=== PATIENT | male | born 1935 | race Caucasian/White ===

== ENCOUNTER 2016-11-12 16:45 | Inpatient (IN) | payer MEDICARE, OTHER ==
--- NOTE | ~2016-11-12 | DS ---
Discharge Summary [address] [id number] [place]. [address] NAME: ABHI MEDRANO : 35 STATUS : DIS IN PAT#: [id number] AGE: 81 ADM/REG DATE : 11/12/16 MR#: [id number] REPORT SERV DATE: 11/16/16 DICTATED BY: RIC VASQUEZ DATE: 11/16/16 REPORT STATUS : Draft TRANSCRIBED BY: MODL DATE: 11/16/16 ADMISSION DATE: 11/12/2016 DISCHARGE DATE: 11/16/2016 REASON FOR ADMISSION: An 81-year-old male who came in with chief complaint of black stools and generalized weakness. The patient has history of cirrhosis with ascites, CAD, hypertension, CKD. For about three days two weeks prior to coming in, the patient was having bright red blood in the stool and then over the last week leading up to admission had bright red blood per rectum, had reported that. Upon further questioning, was found out that it was actually more black and maroon in color. The patient was admitted for GI bleed. DISCHARGE DIAGNOSES: 1. 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 2. Acute blood loss anemia secondary to gastrointestinal bleed. 3. Liver cirrhosis with ascites, status post paracentesis. 4. Congestive heart failure with ejection fraction of 40%. 5. Acute kidney injury on chronic kidney disease stage 3. 6. Tachy-zainab syndrome. 7. Atrial fibrillation, on chronic Coumadin. HOSPITAL COURSE: 1. GI bleed. The patient was admitted for GI bleed, placed on Sandostatin IV drip and IV Protonix, who was seen by Dr. Lundberg and had an endoscopy performed upper GI Dr. Tyler on 11/13/2016 which would show patchy erythematous mucosa in the gastric body, examination otherwise normal. No suggestion of bleeding in the upper GI tract. Colonoscopy was then performed with Dr. Lundberg on the 11/14/2016 and that would show examined portion of ilium to be normal, a single bleeding colonic angioectasia with clips that were placed, also diverticulosis of the descending colon. His recommendation was to monitor hemoglobin and hematocrit and restart Coumadin when if no bleeding and consider not restarting Plavix if it was okay with Cardiology. Cardiology agreed with not restarting Plavix and Coumadin will be restarted tonight at home for the patient. On admission, hemoglobin was 5.2, and he was transfused 3 units packed red cells and 1 unit of FFP. Hemoglobin has been stable, status post colonoscopy, today it is 10.1. 2. Liver cirrhosis with ascites. The patient has chronic cirrhosis with ascites and is followed outpatient by Dr. Andrea Fletcher. His abdominal girth has been increasing over the last month and was causing him some discomfort and mild difficulty breathing. We decided to go ahead and do therapeutic paracentesis while he was here at the hospital and his INR was already lowered while having been had held on his Coumadin for the GI bleed. So, paracentesis was performed today and 14 and 0.5 L were pulled per Interventional Radiology. Blood pressures are stable 130s over 70s, status post procedure. 3. CHF. EF of 40% with tachy-zainab syndrome and atrial fibrillation. The patient having slow heart rates here at the hospital with running in the 30s the first night he got here, was asymptomatic, and in fact he had another episode of his heart rate running in Discharge Summary [address] [address] NAME: ABHI MEDRANO : 35 STATUS : DIS IN PAT#: [id number] AGE: 81 ADM/REG DATE : 11/12/16 MR#: [id number] REPORT SERV DATE: 11/16/16 DICTATED BY: RIC VASQUEZ DATE: 11/16/16 REPORT STATUS : Draft TRANSCRIBED BY: MODL DATE: 11/16/16 the 40s last night. He has been asymptomatic. His heart rate has never been much out of the 60s, it has been mainly running in 60s and 50s during the day and gets down 40s at night. We have been holding his Coreg because of this and Cardiology recommended to continue holding it for the time being. We will have him follow up with Dr. Yang. 4. Acute kidney injury with chronic kidney disease. The patient has CKD 3. His creatinine on admission was 1.91 after transfusion of red blood cells, his creatinine is 1.34 today. DISCHARGE CONDITION: Stable. DISCHARGE MEDICATIONS: 1. Allopurinol 100 mg p.o. daily. 2. Norvasc 5 mg p.o. daily. 3. Lipitor 40 mg p.o. at bedtime. 4. Nitrostat 0.4 sublingual p.r.n. 5. Vitamin B12 one tablet daily. 6. Folic acid 1 mg p.o. daily. 7. Lasix 40 mg p.o. q.48 hours. 8. Hydralazine 25 mg p.o. q.8 hours. 9. Imdur 60 mg p.o. daily. 10.Lactulose 30 mL b.i.d. 11.Synthroid 125 mcg p.o. daily. 12.Protonix 40 mg p.o. daily. 13.Aldactone 25 mg p.o. daily. 14.Warfarin 4 mg p.o. daily. New INR goal given GI bleed will be 2.0 to 2.4, and we will have him follow up with the [facility] this and again on Wednesday to keep close tabs on his PT/INR. DISCHARGE PLAN: The patient is discharged to home this evening. Follow up with Dr. Yang in one to two weeks. Follow up with Dr. Andrea Fletcher next week. Follow up with primary care. The patient's new goal for INR is 2.0-2.4, so we will keep a close eye on his PT/INR. The patient does cardiac rehab twice a week, Wednesday and , at [facility] and also we will get his PT/INR checked during those times. JERROD/SEAN Ric Vasquez APN / [id number] CC: Isac King M.D. Chirag Patel, M.D. Discharge Summary [address] [address] NAME: ABHI MEDRANO : 35 STATUS : DIS IN PAT#: [id number] AGE: 81 ADM/REG DATE : 11/12/16 MR#: [id number] REPORT SERV DATE: 11/16/16 DICTATED BY: RIC VASQUEZ DATE: 11/16/16 REPORT STATUS : Draft TRANSCRIBED BY: SEAN DATE: 11/16/16 Isac Crisostomo MD
--- NOTE | ~2016-11-12 | EGD ---
EGD REPORT [facility] [address] [address] NAME: NAVDEEP MEDRANO : 35 STATUS : ADM IN PAT#: [id number] AGE: 81 ADM/REG DATE : 11/12/16 MR#: [id number] REPORT SERV DATE: 11/14/16 DICTATED BY: ANDRZEJ CARTWRIGHT DATE: 11/14/16 REPORT STATUS : Draft TRANSCRIBED BY: [facility] DATE: 11/14/16 Endoscopy Center Patient Name: Navdeep Medrano Date of : 1935 Attending MD: ANDRZEJ CARTWRIGHT MD Procedure Date No Time: 11/14/2016 Procedure: Colonoscopy Indications: Hematochezia. Coumadin/Plavix. H/o cardiac stent, Afib. Patient Profile: Informed consent was obtained from the patient by me prior to the procedure. Risks, benefits, and alternatives were discussed including the risk of bleeding, perforation, infection, reaction to medicine, missed lesion, and cardiopulmonary complications. Referring MD: CHIQUI KILLIAN MD, DEVIN CHILDERS MD Medicines: Monitored Anesthesia Care Complications: No immediate complications. Procedure: Pre-Anesthesia Assessment: - ASA Grade Assessment: III - A patient with severe systemic disease. After I obtained informed consent, the scope was passed under direct vision. Throughout the procedure, the patient's blood pressure, pulse, and oxygen saturations were monitored continuously. The PCF H190L [id number] was introduced through the anus and advanced to the cecum, identified by appendiceal orifice and ileocecal valve. The colonoscope was slowly withdrawn with careful examination all mucosal surfaces including specific attention around flexures and tip deflection behind folds; retroflexion performed in rectum. The colonoscopy was performed without difficulty. The patient tolerated the procedure well. The quality of the bowel preparation was adequate. The ileocecal valve, appendiceal orifice, terminal ileum and rectum were photographed. Findings: The terminal ileum appeared normal. A single small localized angioectasia with bleeding was found at the hepatic flexure. Three hemostatic clips were successfully placed. Bleeding had stopped at the end of the procedure. Two small-mouthed diverticula were found in the descending colon. Impression: - The examined portion of the ileum was normal. - A single bleeding colonic angioectasia. Clips were placed. - Diverticulosis in the descending colon. EGD REPORT [place] [address] [facility] [place]. [address] NAME: NAVDEEP MEDRANO : 35 STATUS : ADM IN [facility]#: [id number] AGE: 81 ADM/REG DATE : 11/12/16 MR#: [id number] REPORT SERV DATE: 11/14/16 DICTATED BY: ANDRZEJ CARTWRIGHT DATE: 11/14/16 REPORT STATUS : Draft TRANSCRIBED BY: [employer] DATE: 11/14/16 Recommendation: Monitor HCT. Restart coumadin tomorrow if no bleeding. Consider no Plavix if OK with Cardiology. Procedure Code(s): --- Professional --- 96114, Colonoscopy, flexible, proximal to splenic flexure; with control of bleeding (eg, injection, bipolar cautery, unipolar cautery, laser, heater probe, stapler, plasma senior security analyst) Diagnosis Code(s): --- Professional --- K57.30, Diverticulosis of large intestine without perforation or abscess without bleeding K55.21, Angiodysplasia of colon with hemorrhage K92.1, Melena CPT copyright 2013 [employer]. All rights reserved. The codes documented in this report are preliminary and upon inpatient coder review may be revised to meet current compliance requirements. ANDRZEJ CARTWRIGHT MD 11/14/2016 7:41 AM This report has been signed electronically. Number of Addenda: 0 Note Initiated On: 11/14/2016 6:50 AM [address] [id number]
--- NOTE | ~2016-11-12 | EGD ---
EGD REPORT [facility] [address] [place] [address] NAME: NAVDEEP MEDRANO : 35 STATUS : DIS IN PAT#: [id number] AGE: 81 ADM/REG DATE : 11/12/16 MR#: [id number] REPORT SERV DATE: 12/01/16 DICTATED BY: ANDRZEJ CARTWRIGHT DATE: 12/01/16 REPORT STATUS : Draft TRANSCRIBED BY: [facility] DATE: 12/01/16 Endoscopy Center Patient Name: Navdeep Medrano Date of : 1935 Attending MD: ANDRZEJ CARTWRIGHT MD Procedure Date No Time: 11/14/2016 Procedure: Colonoscopy Indications: Hematochezia. Coumadin/Plavix. H/o cardiac stent, Afib. Patient Profile: Informed consent was obtained from the patient by me prior to the procedure. Risks, benefits, and alternatives were discussed including the risk of bleeding, perforation, infection, reaction to medicine, missed lesion, and cardiopulmonary complications. Referring MD: CHIQUI KILLIAN MD, DEVIN CHILDERS MD Medicines: Monitored Anesthesia Care Complications: No immediate complications. Procedure: Pre-Anesthesia Assessment: - ASA Grade Assessment: III - A patient with severe systemic disease. After I obtained informed consent, the scope was passed under direct vision. Throughout the procedure, the patient's blood pressure, pulse, and oxygen saturations were monitored continuously. The PCF H190L [id number] was introduced through the anus and advanced to the cecum, identified by appendiceal orifice and ileocecal valve. The colonoscope was slowly withdrawn with careful examination all mucosal surfaces including specific attention around flexures and tip deflection behind folds; retroflexion performed in rectum.The colonoscopy was performed without difficulty. The patient tolerated the procedure well. The quality of the bowel preparation was adequate. The ileocecal valve, appendiceal orifice, terminal ileum and rectum were photographed. Findings: The terminal ileum appeared normal. A single small localized angioectasia with bleeding was found at the hepatic flexure. Three hemostatic clips were successfully placed. Bleeding had stopped at the end of the procedure. Two small-mouthed diverticula were found in the descending colon. Impression: - The examined portion of the ileum was normal. - A single bleeding colonic angioectasia. Clips were placed. - Diverticulosis in the descending colon. EGD REPORT [place] [address] [facility] [place]. [address] NAME: NAVDEEP MEDRANO : 35 STATUS : DIS IN PAT#: [id number] AGE: 81 ADM/REG DATE : 11/12/16 MR#: [id number] REPORT SERV DATE: 12/01/16 DICTATED BY: ANDRZEJ CARTWRIGHT DATE: 12/01/16 REPORT STATUS : Draft TRANSCRIBED BY: [employer] DATE: 12/01/16 Recommendation: Monitor HCT. Restart coumadin tomorrow if no bleeding. Consider no Plavix if OK with Cardiology. Procedure Code(s): --- Professional --- 46746, Colonoscopy, flexible, proximal to splenic flexure; with control of bleeding (eg, injection, bipolar cautery, unipolar cautery, laser, heater probe, stapler, plasma can filling machine operator) Diagnosis Code(s): --- Professional --- K57.30, Diverticulosis of large intestine without perforation or abscess without bleeding K55.21, Angiodysplasia of colon with hemorrhage K92.1, Melena CPT copyright 2013 [employer]. All rights reserved. The codes documented in this report are preliminary and upon market research interviewer review may be revised to meet current compliance requirements. ANDRZEJ CARTWRIGHT MD 11/14/2016 7:41 AM This report has been signed electronically. Number of Addenda: 0 Note Initiated On: 11/14/2016 6:50 AM Scope Withdrawal Time 0 hours 20 minutes 17 seconds
--- NOTE | ~2016-11-12 | HP ---
History And Physical [place] [id number] [facility] [place]. [address] NAME: ABHI MEDRANO : 35 STATUS : REG ER PAT#: [id number] AGE: 81 ADM/REG DATE : 11/12/16 MR#: [id number] REPORT SERV DATE: 11/12/16 DICTATED BY: ADDY XIONG DATE: 11/12/16 REPORT STATUS : Draft TRANSCRIBED BY: MODL DATE: 11/12/16 DATE OF ADMISSION: 11/12/2016 CHIEF COMPLAINT: Black stools and generalized weakness. HISTORY OF PRESENT ILLNESS: This is an 81-year-old gentleman with history of atrial fibrillation who is on Coumadin as well as history of cirrhosis with ascites, coronary artery disease, hypertension, chronic kidney disease, amongst many other medical conditions, presenting with black stools and generalized weakness. The patient reports that he has had three days of bright red blood about a couple of weeks ago, and then for the past week, the patient has been having bright red blood per rectum. However, upon further questioning, and after examination of the stool sample that the family actually brought in, it is more black and maroon in color. Along with that, the patient grew weak and fatigued along with shortness of breath and dyspnea on exertion. The patient was brought to the ER for further evaluation and care. In the ER, the patient was found to be afebrile and hemodynamically stable. Initial lab evaluation was actually fairly benign except for hemoglobin of 5.2. The most recent hemoglobin that we have on records is from 10/06/2016 which is about a month ago, and at that time, he was found to be 10.4. The patient was also found to be slightly supratherapeutic and the INR at 3.3. Internal Medicine consultation was requested for admission of the patient for further evaluation and care. REVIEW OF SYSTEMS: The patient denies any fevers or chills. Also, 14-point review of systems reviewed and negative other than mentioned above. MEDICATIONS: The list is still pending at this time, but the patient is on Coumadin as well as Plavix for atrial fibrillation with history of CVA. ALLERGIES: 1. PENICILLINS. 2. CARBAPENEMS. 3. CEPHALOSPORINS. PAST MEDICAL HISTORY: 1. Atrial fibrillation for which he is on Coumadin. The patient follows with Dr. Yang. 2. Congestive heart failure, historically known with ejection fraction of 20%. But more recently from June, he was found to also have a right-sided systolic heart failure at 40% EF. 3. Coronary artery disease. 4. Chronic kidney disease, stage III with baseline creatinine of between 1.5 and 2.0. The patient follows with Dr. Reddy. 5. Cardiac cirrhosis with ascites. The patient had a most recent paracentesis of 14 L last June. The patient follows with Dr. Fletcher as well as Dr. Ron. The patient also does have a history of hepatic encephalopathy for which he is on lactulose. History And Physical [address] [address] NAME: ABHI MEDRANO : 35 STATUS : REG ER PAT#: [id number] AGE: 81 ADM/REG DATE : 11/12/16 MR#: [id number] REPORT SERV DATE: 11/12/16 DICTATED BY: ADDY XIONG DATE: 11/12/16 REPORT STATUS : Draft TRANSCRIBED BY: [employer] DATE: 11/12/16 6. Pulmonary hypertension. 7. Hypertension. 8. History of CVA. PAST SURGICAL HISTORY: Cardiac stents. FAMILY HISTORY: Negative for heart or liver disease. SOCIAL HISTORY: The patient does not smoke, drink alcohol, or use any illicit drugs. The patient lives at home with his . The patient is accompanied by his two daughters and the patient's here in the ER. The patient does not smoke, drink alcohol, or use any illicit drugs. PHYSICAL EXAMINATION: VITAL SIGNS: Temperature 98.2, blood pressure 111/56, pulse 68, respiratory rate is 18, saturating 100% on 2 L of oxygen. NEUROLOGIC: The patient is alert and oriented x3 with no focal neurologic deficits. GENERAL: The patient is awake, does not appear to be in acute distress, and he is cooperative. NECK: No JVD. No lymphadenopathy. Normal thyroid. CHEST: No midline sternotomy scar and no tenderness to palpation. LUNGS: Actually clear to auscultation bilaterally with normal respiratory effort on 2 L of oxygen per nasal cannula. The patient has limited deep inspiration secondary to ascites. CARDIOVASCULAR: Regular rate and rhythm with no murmurs, rubs, or gallops and PMI is nondisplaced. ABDOMEN: Soft, nontender, with active bowel sounds and no organomegaly. The patient does have distended abdomen from the ascites. EXTREMITIES: No edema. Normal distal pulses. No calf tenderness. SKIN: Clean, dry, warm, and intact. LABORATORY DATA: Sodium is 139, potassium 4.3, chloride 108, BUN 48, creatinine 1.91, glucose 142, calcium 8.6. LFTs are within normal limits. White blood cell count is 5.9, hemoglobin 5.2, platelets 152. INR is 3.3. ASSESSMENT: This is an 81-year-old gentleman with history of atrial fibrillation, anticoagulated on Coumadin, as well as cirrhosis presenting with an upper gastrointestinal bleed. 1. Upper gastrointestinal bleed with acute blood loss anemia. The patient's hemoglobin went from 10.4 to 5.2 in a matter of month. 2. Cardiac cirrhosis with ascites. 3. Chronic atrial fibrillation, on Coumadin, the patient's INR is 3.3 today. 4. Coronary artery disease. 5. Chronic kidney disease, stage III, stable today. 6. Hypertension. 7. History of cerebrovascular accident. PLAN: My plan is to admit the patient under telemetry monitoring. The patient will be given History And Physical [address] [place]. [address] NAME: ABHI MEDRANO : 35 STATUS : REG ER [facility]#: [id number] AGE: 81 ADM/REG DATE : 11/12/16 MR#: [id number] REPORT SERV DATE: 11/12/16 DICTATED BY: ADDY XIONG DATE: 11/12/16 REPORT STATUS : Draft TRANSCRIBED BY: MODL DATE: 11/12/16 IV fluid resuscitation. The patient will be given two packs of PRBCs as well as reversing the Coumadin with FFP and vitamin K. The patient's H and H will be closely monitored and additional PRBCs will be given as needed. I will go ahead and start the patient on Protonix drip as well as octreotide drip given his history of cirrhosis. GI consultation has already been requested, and I have also consulted with Dr. Fletcher during the patient's current situation. Standard DVT prophylaxis. The patient is full code at this time. [facility]/CHARLAL Addy Xiong MD / [id number] CC: Isac Escobar M.D. C. Samuel Ledford, M.D. Donald Hetzel, M.D.
--- NOTE | ~2016-11-12 | EGD ---
EGD REPORT [facility] [address] [address] NAME: NAVDEEP MEDRANO : 35 STATUS : ADM IN PAT#: [id number] AGE: 81 ADM/REG DATE : 11/12/16 MR#: [id number] REPORT SERV DATE: 11/13/16 DICTATED BY: MARK HOLLOWAY DATE: 11/13/16 REPORT STATUS : Draft TRANSCRIBED BY: [facility] DATE: 11/13/16 Endoscopy Center Patient Name: Navdeep Medrano Date of : 1935 Attending MD: MARK HOLLOWAY MD Procedure Date No Time: 11/13/2016 Procedure: Upper GI endoscopy Indications: Hematochezia, Melena Referring MD: CHIQUI KILLIAN MD Medicines: Monitored Anesthesia Care Complications: No immediate complications. Estimated blood loss: None. Procedure: Pre-Anesthesia Assessment: - ASA Grade Assessment: III - A patient with severe systemic disease. After obtaining informed consent, the endoscope was passed under direct vision. Throughout the procedure, the patient's blood pressure, pulse, and oxygen saturations were monitored continuously. The GIF [id number] [id number] was introduced through the mouth, and advanced to the second part of duodenum. The upper GI endoscopy was accomplished without difficulty. The patient tolerated the procedure well. Findings: The examined esophagus was normal. Patchy moderately erythematous mucosa without bleeding was found in the gastric body. The examined duodenum was normal. The cardia and gastric fundus were normal on retroflexion. The exam was otherwise without abnormality. Impression: - Patchy erythematous mucosa in the gastric body. - The examination was otherwise normal. - No suggestion of bleeding in the upper GI tract Recommendation: - Perform a colonoscopy tomorrow. Procedure Code(s): --- Professional --- 89007, Esophagogastroduodenoscopy, flexible, transoral; diagnostic, including collection of specimen(s) by brushing or washing, when performed (separate procedure) Diagnosis Code(s): --- Professional --- K31.9, Disease of stomach and duodenum, unspecified K92.1, Melena EGD REPORT [facility] [address] [place] [address] [place]. [address] NAME: NAVDEEP MEDRANO : 35 STATUS : ADM IN [facility]#: [id number] AGE: 81 ADM/REG DATE : 11/12/16 MR#: [id number] REPORT SERV DATE: 11/13/16 DICTATED BY: MARK HOLLOWAY DATE: 11/13/16 REPORT STATUS : Draft TRANSCRIBED BY: [employer] DATE: 11/13/16 CPT copyright 2013 [employer]. All rights reserved. The codes documented in this report are preliminary and upon equine internship review may be revised to meet current compliance requirements. Mark Holloway MD MARK HOLLOWAY MD 11/13/2016 11:11 AM This report has been signed electronically. Number of Addenda: 0 Note Initiated On: 11/13/2016 10:34 AM Scope Withdrawal Time 0 hours 0 minutes [address] [place], [place] [address] [address]
--- NOTE | ~2016-11-12 | CN ---
Consultation Report [facility] [address]. [address] NAME: ABHI MEDRANO : 35 STATUS : ADM IN PAT#: [id number] AGE: 81 ADM/REG DATE : 11/12/16 MR#: [id number] REPORT SERV DATE: 11/13/16 DICTATED BY: LUIS ANGEL BOCANEGRA DATE: 11/13/16 REPORT STATUS : Draft TRANSCRIBED BY: MODL DATE: 11/13/16 CARDIOLOGY CONSULTATION DATE OF CONSULTATION: REFERRING REASON: Atrial fibrillation with slow ventricular response and GI bleeding and chronic anticoagulation. HISTORY OF PRESENT ILLNESS: This is a pleasant 81-year-old white gentleman with complex past medical history, well known to Dr. Dirk Yang from [facility], who has been admitted to Hospitalist Service after syncopal spell in the setting of recurrent GI bleeding and severe anemia with hemoglobin 5.2 and hematocrit 16. His Coumadin has been reversed, while initially INR was 3.3. He underwent resuscitative measures and had an EGD earlier today, which revealed patchy erosive mucosa in the stomach, but no other source of bleeding. The patient has known CAD with a history of drug-eluting stent to RCA in 10/2015 during the last [facility] office visit. The Plavix which the patient was recommended to discontinue, but reportedly he was still on it. He is on chronic anticoagulation with Coumadin due to high CHADS-VASc risk score for chronic atrial fibrillation. He also has cirrhosis have his recurrent ascites and large volume thoracentesis in June up to 14 L. His last GI bleeding was reportedly in 09/2016. There has been some fluctuation of the INR recently. The patient lives with his . He walks without any support. He has some chronic melena, and most recently, bright red blood per rectum. He has some chronic mild to moderate dyspnea on exertion, but denies signs of paroxysmal nocturnal dyspnea or chest pain. He denies any palpitations. Earlier today, in the GI lab, there has been some episodes of up to 18 beats runs of wide-complex tachycardia, which is possible AFib with aberrancy. He has chronic atrial fibrillation. He was asymptomatic at that time. He denies any palpitations. Due to the slow AFib with slow ventricular response in the low 50s, carvedilol has been on hold now. The patient is now comfortable and lying flat without any shortness of breath. He has some multiple questions and I had the opportunity to discuss situation with his and two of his daughters. Multiple records also reviewed. PAST MEDICAL HISTORY: 1. History of recent GI bleeding. Denies history of liver cirrhosis with status post large volume paracenteses in June, followed by liver specialist. 2. Chronic kidney disease. 3. Coronary artery disease, status post drug-eluting stent into the RCA in 10/2015 with moderate residual disease in the LAD treated medically. Denies congestive heart failure class 2 symptoms. 4. Cardiomyopathy with EF 40% in 2016. 5. Chronic atrial fibrillation. 6. CHADS-VASc risk score of 8, on chronic anticoagulation with Coumadin. 7. Hypertension. Consultation Report [address] [place]. [address] NAME: ABHI MEDRANO : 35 STATUS : ADM IN [facility]#: [id number] AGE: 81 ADM/REG DATE : 11/12/16 MR#: [id number] REPORT SERV DATE: 11/13/16 DICTATED BY: LUIS ANGEL BOCANEGRA DATE: 11/13/16 REPORT STATUS : Draft TRANSCRIBED BY: SEAN DATE: 11/13/16 8. Hyperlipidemia. 9. History of recurrent GI bleeding. 10.Obstructive sleep apnea. 11.Hypothyroidism. 12.Remote history of cerebrovascular accident. ALLERGIES: PENICILLIN AND CEPHALOSPORIN. SOCIAL HISTORY: The patient quit smoking 30 years ago, smoked for many years. Denies drinking alcohol or using street drugs. He is walking without any support. He is . FAMILY HISTORY: Negative for sudden cardiac premature coronary arteries in the family. HOME MEDICATIONS: Allopurinol, amlodipine 5 mg once a day, Lipitor 40 mg once a day, Coreg 6.25 twice a day, Plavix 75 mg once a day, folic acid, Lasix 40 mg every other day, hydralazine 25 mg every 8 hours as needed, Imdur 60 mg once a day, lactulose, Synthroid 125 mcg once a day, nitroglycerin p.r.n., pantoprazole 40 mg once a day, Aldactone 25 mg once a day, and Coumadin and 5 mg once a day. PHYSICAL EXAMINATION: GENERAL. No acute distress elderly gentleman. VITAL SIGNS: Blood pressure 136/60, heart rate 54 and irregularly irregular. HEENT: Pupils reactive to light and accommodation. Moist mucosa membrane. NECK: No JVD. Normal carotid upstroke. No carotid bruits. LUNGS: Decreased breath sounds. Normal respiratory effort, but no crackles. ABDOMEN: Obese, distended with some ascites. LOWER EXTREMITIES: Trace edema around the ankle with decreased pedal pulses bilaterally. EXT: No edema. Pedal pulses strong and equal bilaterally. SKIN: Warm with normal turgor. MS: No kyphosis. NEURO/PSY: Alert and oriented. Nonfocal. DATA: Hemoglobin 5.2, hematocrit 16. INR 3.3. BUN 48, creatinine 1.9. Electrocardiogram revealed atrial fibrillation with slow ventricular response at 57 beats per minute with nonspecific T-wave changes. The monitor as above. ASSESSMENT AND PLAN: 1. Recurrent gastrointestinal bleeding. 2. Chronic anticoagulation. 3. Severe anemia in the setting of #1 and #2. 4. Syncopal spell likely in the setting of #1. 5. 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 6. Ischemic cardiomyopathy. Consultation Report [address] [place]. [address] NAME: ABHI MEDRANO : 35 STATUS : ADM IN PAT#: [id number] AGE: 81 ADM/REG DATE : 11/12/16 MR#: [id number] REPORT SERV DATE: 11/13/16 DICTATED BY: LUIS ANGEL BOCANEGRA DATE: 11/13/16 REPORT STATUS : Draft TRANSCRIBED BY: SEAN DATE: 11/13/16 7. Coronary artery disease with remote history of PCI. The patient has some multiple medical problems. He was resuscitated, and the beta blockers are on hold. We will need to monitor closely, and if his heart rate will be increasing, restart low dose of carvedilol. We will supplement with intravenous metoprolol p.r.n. also. 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 While his PCI to RCA was more than a year ago, we will discontinue Plavix completely. If he is candidate for newer agents, this will need to be discussed with the liver specialist, but I discussed with him and his family members that only Pradaxa is reversal agent for this type of situation. I am concerned that these newer origins are also metabolized through the liver, which may worsen his liver cirrhosis. We will need to hold off anticoagulation for now. The patient has a pending colonoscopy tomorrow. We will continue to follow him with you. RUBEN/SEAN Luis Angel Bocanegra M.D. / [id number] CC: Isac King M.D.
--- NOTE | ~2016-11-12 | CN ---
Consultation Report [facility] [address] [place]. [address] NAME: ABHI MEDRANO : 35 STATUS : ADM IN PAT#: [id number] AGE: 81 ADM/REG DATE : 11/12/16 MR#: [id number] REPORT SERV DATE: 11/13/16 DICTATED BY: LATESHA FALK DATE: 11/13/16 REPORT STATUS : Draft TRANSCRIBED BY: MODL DATE: 11/13/16 GI CONSULTATION DATE OF CONSULTATION: 11/13/2016 REASON FOR CONSULTATION: Evaluation and management of black stools, weakness, acute blood loss anemia. HISTORY OF PRESENT ILLNESS: Mr. Medrano is an 81-year-old male patient, who is known to Dr. Forrest Ron, as well as Dr. Andrea Fletcher, who presented to [facility] on the 11/12/2016 with a chief complaint of gastrointestinal bleeding. He states, this began last Wednesday. He states that, he of course has multiple stools per day secondary to lactulose usage. He has had some bright red blood that mainly has been dark black to maroon in color. He has had no associated abdominal pain. He has a history of cirrhosis with borderline splenomegaly and ascites that was new onset in 06/2016. He did undergo a paracentesis at that time, with 14 L being removed. He has a history of atrial fibrillation, on chronic Coumadin therapy. INR on admission was 3.3, presently it is 1.8 after FFP. Hemoglobin on admission 5.2 with hematocrit of 16. He has received 3 units of packed red blood cells thus far. Prior to the third unit had been started, his hemoglobin was 6.7, hematocrit was 20.5, elevated BUN and creatinine from baseline. His last endoscopies with Dr. Ron were done in 08/2014. His EGD had findings of hiatal hernia, gastritis as well as duodenal erosions. Colonoscopy showed colonic angioectasis, internal hemorrhoids, colon polyps. I have discussed with the patient, the patient's family that presently we will set him up for upper endoscopy secondary to his complaints of black stools to evaluate his GI tract for questionable esophageal varices, portal hypertensive gastropathy. If his EGD is negative, he will most likely be set up for colonoscopy to be done on the 11/14/2016. I did discuss risks, benefits, alternatives, and complications with them to include, but not limited to risk of bleeding, perforation, infection, reaction to medications as well as cardiac and pulmonary side effects. He is agreeable to proceed. PAST MEDICAL HISTORY: Positive for cirrhosis, most likely secondary to congestive hepatopathy, pulmonary hypertension, coronary artery disease, status post stenting on Plavix, atrial fibrillation on chronic Coumadin, abdominal ascites, chronic kidney disease stage III, hypertension, pneumonia, CVA, anemia of chronic disease, right ventricular heart failure with last ejection fraction calculated at 40%, colonic AVMs, gastritis, gout, bradycardia. SURGICAL HISTORY: Coronary artery stenting. PROCEDURES: EGD, colonoscopy. SOCIAL HISTORY: . He has two daughters and , one daughter is at the bedside. His is present. He denies tobacco. Past alcohol many years ago. No illicit drugs. Consultation Report [place] [id number]. [address] NAME: ABHI MEDRANO : 35 STATUS : ADM IN [facility]#: [id number] AGE: 81 ADM/REG DATE : 11/12/16 MR#: [id number] REPORT SERV DATE: 11/13/16 DICTATED BY: LATESHA FALK DATE: 11/13/16 REPORT STATUS : Draft TRANSCRIBED BY: SEAN DATE: 11/13/16 PROCEDURES: Last EGD, colonoscopy in 08/2014. EGD had hiatal hernia, gastritis. Biopsies were done. Colonoscopy with internal hemorrhoids, AVMs, polyps on the biopsies. He had Helicobacter pylori positive and was treated. No celiac disease noted. Colon polyps removed, showed tubular adenomatous type without high-grade dysplasia. FAMILY HISTORY: Noncontributory from a GI standpoint. ALLERGIES: LISTED TO PENICILLIN, CEPHALOSPORINS, CARBAPENEM. HOME MEDICATIONS: Zyloprim, Norvasc, Lipitor, Coreg, Plavix, ferrous sulfate, folic acid, Lasix, Apresoline, Imdur, lactulose, Synthroid, nitroglycerin, Protonix, Aldactone, over-the counter vitamin D3, [id number] vitamin B12, and Coumadin. REVIEW OF SYSTEMS: A 10-point review of systems obtained. Pertinent positives addressed in the history of present illness. PERTINENT LABORATORY DATA: Sodium 141, potassium 4.1, BUN is 47, creatinine is 1.97. White count is 5.3, hemoglobin 6.7, hematocrit 20.5, platelet count 127. INR of 1.8. PHYSICAL EXAMINATION: VITAL SIGNS: Temperature 97.9, pulse 54, respirations 16, and blood pressure 136/60. NEURO: Reveals an alert male, resting in bed. No focal deficits. GENERAL: Cooperative, in no apparent distress. He is awake. He is alert. He is oriented x3. HEAD EARS, EYES, NOSE, AND THROAT: Anicteric. Pupils equal, round, reactive to light and accommodation. Normocephalic, atraumatic. NECK: No JVD. No palpable nodes. LUNGS: Diminished throughout with normal respiratory effort exhibited. Equal expansion. CARDIOVASCULAR SYSTEM: Regular rate and rhythm. Heart rate by my count 48. ABDOMEN: Soft with notable ascites, however non tense. He has active bowel sounds in all four quadrants. Unable to assess organomegaly. EXTREMITIES: No edema. Normal distal pulses. SKIN: Warm, dry, and intact. ASSESSMENT/PLAN: 1. Gastrointestinal bleed with dark stools, most likely upper, must rule out esophageal varices, gastric arteriovenous malformation, peptic ulcer disease, portal hypertensive gastropathy. 2. Acute blood loss anemia. 3. Elevated INR. 4. Cirrhosis with ascites. 5. History of colonic arteriovenous malformations. 6. Congestive heart failure. Consultation Report [address] [place]. [address] NAME: ABHI MEDRANO : 35 STATUS : ADM IN [facility]#: [id number] AGE: 81 ADM/REG DATE : 11/12/16 MR#: [id number] REPORT SERV DATE: 11/13/16 DICTATED BY: LATESHA FALK DATE: 11/13/16 REPORT STATUS : Draft TRANSCRIBED BY: MODL DATE: 11/13/16 PLAN: 1. EGD today. 2. Continue PPI drip and octreotide drip. 3. If EGD is negative, most likely colonoscopy on the 11/14/2016. 4. Transfuse as needed. KAYE/CHARLAL MANDI [place] / [id number] CC: Isac King M.D.
[2016-11-12 15:41] LABS: BASOPHILS 0.2 %; BASOPHILS ABSOLUTE 0.01 10/3/uL (0.0-0.16); EOSINOPHILS 0.2 %; EOSINOPHILS ABSOLUTE 0.01 10/3/uL (0.0-0.53); ER CBC TAT 0 Hrs 08 Mins; IMMATURE GRANULOCYTES 0.3 %; IMMATURE GRANULOCYTES ABSOLUTE 0.02 10/3/uL (0.0-0.11); LYMPHOCYTES 14.4 %; LYMPHOCYTES ABSOLUTE 0.84 10/3/uL (0.67-4.30); MEAN CORPUS HGB CONC 32.5 g/dL (32.0-36.0); MEAN CORPUSCULAR HEMOGLOB 29.7 pg (26.0-34.0); MEAN PLATELET VOLUME 8.6 fL (9.2-13.0); MONOCYTES ABSOLUTE 0.47 10/3/uL (0.21-1.20); NEUTROPHILS 76.9 %; PLATELET COUNT 152 10/3/uL (150-400); RBC DISTRIBUTION WIDTH 15.5 % (12.0-16.0); WHITE BLOOD CELLS 5.9 10/3/uL (4.5-10.5)
[2016-11-12 15:43] LABS: HEMOGLOBIN 5.2 g/dL (13.6-17.8); MEAN CORPUSCULAR VOLUME 91.4 fL (80-100); RED CELL COUNT 1.75 10/6/uL (4.7-6.1)
[2016-11-12 15:44] LABS: MANUAL DIFF NO %
[2016-11-12 15:52] LABS: INTERNATIONAL NORMAL RATI 3.3 UNITS (-); PARTIAL THROMBO TIME 36.6 SEC (22.5-37.2)
[2016-11-12 16:03] LABS: ALKALINE PHOSPHATASE 89 U/L (45-117); CALCIUM, SERUM 8.6 MG/DL (8.5-10.4); CHLORIDE, SERUM 108 MMOL/L (96-112); SGOT(AST) 29 U/L (5-40); SGPT(ALT) 18 U/L (5-65); SODIUM, SERUM 139 MMOL/L (135-148); TOTAL PROTEIN 7.2 G/DL (6.0-8.5)
[2016-11-12 16:04] LABS: A/G RATIO 0.9 (0.7-1.9); ALBUMIN 3.5 G/DL (3.5-5.0); BUN (BLOOD UREA NITROGEN) 48 MG/DL (6-23); CO2 (CARBON DIOXIDE) 21 MMOL/L (24-34); CREATININE 1.91 MG/DL (0.70-1.30); GFR AFRICAN AMERICAN 37 ML/MIN (>=60); GFR NON AFRICAN AMERICAN 32 ML/MIN (>=60); GLOBULIN 3.7 G/DL (2.5-4.1); GLUCOSE, SERUM 142 MG/DL (60-99); POTASSIUM, SERUM 4.3 MMOL/L (3.5-5.3); TOTAL BILIRUBIN 0.6 MG/DL (0-1.2)
[~2016-11-12 16:45] MED LIST: APRES25 PO; ASAB PO; C25 PO; CAT2 PO; CAT3 PO; COREG3 PO; COREG6 PO; COZ25 PO; COZAAR100 MG PO; CYANO1000T PO; FOLIC PO; IMDUR60 PO; JANTOVEN3 MG PO; JANTOVEN4 MG PO; JANTOVEN5 MG PO; KLOR-CON 1010 MEQ PO; L40 PO; LACT30UDL PO; LEVOTHYROXIN125 MCG PO; LIPITOR10 PO; LIPITOR40 PO; NITROSTAT0.4 MG SL; NORV10 PO; NORV5 PO; OMNICEF300 PO; PLAVIX PO; PROTONIX PO; SPIRO25 PO; SYN1 PO; SYN125 PO; VITAMIN D2000 UNIT PO; Z300 PO; ZITH250 PO
[2016-11-12] MEDS ORDERED: Z100 PO (16:57)
[2016-11-12] MEDS ORDERED: LIPITOR40 PO (16:58)
[2016-11-12] MEDS ORDERED: OTC VITAMIN D3 PO (16:58)
[2016-11-12] MEDS ORDERED: NORV5 PO (16:58)
[2016-11-12] MEDS ORDERED: COREG6 PO (16:58)
[2016-11-12] MEDS ORDERED: PLAVIX PO (17:00)
[2016-11-12] MEDS ORDERED: NITROSTAT0.4 MG SL (17:00)
[2016-11-12] MEDS ORDERED: HEMOCYTE324 MG PO (17:00)
[2016-11-12] MEDS ORDERED: OTC VITAMIN B-12 PO (17:00)
[2016-11-12] MEDS ORDERED: L40 PO (17:01)
[2016-11-12] MEDS ORDERED: FOLIC PO (17:01)
[2016-11-12] MEDS ORDERED: SYN125 PO (17:02)
[2016-11-12] MEDS ORDERED: IMDUR60 PO (17:02)
[2016-11-12] MEDS ORDERED: APRES25 PO (17:02)
[2016-11-12] MEDS ORDERED: CONSTULOSE PO (17:02)
[2016-11-12] MEDS ORDERED: SPIRO25 PO (17:03)
[2016-11-12] MEDS ORDERED: PROTONIX PO (17:03)
[2016-11-12] MEDS ORDERED: C5 PO (17:03)
[2016-11-13 00:05] LABS: HEMATOCRIT 22.8 % (40.0-51.0); HEMOGLOBIN 7.5 g/dL (13.6-17.8)
[2016-11-13 06:01] LABS: INTERNATIONAL NORMAL RATI 1.8 UNITS (-)
[2016-11-13 06:03] LABS: PROTIME (NOT ORD) 20.4 SEC (12.0-14.5)
[2016-11-13 06:06] LABS: BASOPHILS 0.2 %; BASOPHILS ABSOLUTE 0.01 10/3/uL (0.0-0.16); EOSINOPHILS ABSOLUTE 0.05 10/3/uL (0.0-0.53); HEMATOCRIT 20.5 % (40.0-51.0); HEMOGLOBIN 6.7 g/dL (13.6-17.8); IMMATURE GRANULOCYTES 0.6 %; IMMATURE GRANULOCYTES ABSOLUTE 0.03 10/3/uL (0.0-0.11); LYMPHOCYTES 18.1 %; LYMPHOCYTES ABSOLUTE 0.95 10/3/uL (0.67-4.30); MEAN CORPUS HGB CONC 32.7 g/dL (32.0-36.0); MEAN CORPUSCULAR HEMOGLOB 29.4 pg (26.0-34.0); MEAN CORPUSCULAR VOLUME 89.9 fL (80-100); MEAN PLATELET VOLUME 9.4 fL (9.2-13.0); MONOCYTES 12.2 %; MONOCYTES ABSOLUTE 0.64 10/3/uL (0.21-1.20); NEUTROPHILS 67.9 %; NEUTROPHILS ABSOLUTE 3.57 10/3/uL (2.02-8.40); PLATELET COUNT 127 10/3/uL (150-400); RBC DISTRIBUTION WIDTH 16.1 % (12.0-16.0); RED CELL COUNT 2.28 10/6/uL (4.7-6.1); WHITE BLOOD CELLS 5.3 10/3/uL (4.5-10.5)
[2016-11-13 06:07] LABS: MANUAL DIFF NO %
[2016-11-13 06:16] LABS: BUN (BLOOD UREA NITROGEN) 47 MG/DL (6-23); CALCIUM, SERUM 8.1 MG/DL (8.5-10.4); CHLORIDE, SERUM 110 MMOL/L (96-112); CO2 (CARBON DIOXIDE) 20 MMOL/L (24-34); CREATININE 1.97 MG/DL (0.70-1.30); GFR AFRICAN AMERICAN 36 ML/MIN (>=60); GFR NON AFRICAN AMERICAN 31 ML/MIN (>=60); GLUCOSE, SERUM 133 MG/DL (60-99); POTASSIUM, SERUM 4.1 MMOL/L (3.5-5.3); SODIUM, SERUM 141 MMOL/L (135-148)
[2016-11-13 06:19] LABS: PHOSPHORUS, SERUM 3.5 MG/DL (2.5-4.5)
[2016-11-13 15:32] LABS: HEMATOCRIT 28.4 % (40.0-51.0); HEMOGLOBIN 9.7 g/dL (13.6-17.8)
[2016-11-13 21:09] LABS: HEMOGLOBIN 10.7 g/dL (13.6-17.8)
[2016-11-13 21:12] LABS: HEMATOCRIT 32.1 % (40.0-51.0)
[2016-11-14 04:47] LABS: BASOPHILS 0.1 %; BASOPHILS ABSOLUTE 0.01 10/3/uL (0.0-0.16); EOSINOPHILS 2.1 %; EOSINOPHILS ABSOLUTE 0.14 10/3/uL (0.0-0.53); HEMOGLOBIN 9.8 g/dL (13.6-17.8); IMMATURE GRANULOCYTES 0.6 %; IMMATURE GRANULOCYTES ABSOLUTE 0.04 10/3/uL (0.0-0.11); LYMPHOCYTES ABSOLUTE 0.75 10/3/uL (0.67-4.30); MEAN CORPUS HGB CONC 33.8 g/dL (32.0-36.0); MEAN CORPUSCULAR HEMOGLOB 30.1 pg (26.0-34.0); MEAN PLATELET VOLUME 9.3 fL (9.2-13.0); MONOCYTES 10.9 %; MONOCYTES ABSOLUTE 0.74 10/3/uL (0.21-1.20); NEUTROPHILS 75.3 %; NEUTROPHILS ABSOLUTE 5.14 10/3/uL (2.02-8.40); PLATELET COUNT 143 10/3/uL (150-400); WHITE BLOOD CELLS 6.8 10/3/uL (4.5-10.5)
[2016-11-14 04:48] LABS: MANUAL DIFF NO %; RED CELL COUNT 3.26 10/6/uL (4.7-6.1)
[2016-11-14 04:50] LABS: INTERNATIONAL NORMAL RATI 1.6 UNITS (-); PROTIME (NOT ORD) 18.6 SEC (12.0-14.5)
[2016-11-14 05:00] LABS: ALBUMIN 3.2 G/DL (3.5-5.0); CHLORIDE, SERUM 112 MMOL/L (96-112); CO2 (CARBON DIOXIDE) 20 MMOL/L (24-34); CREATININE 1.73 MG/DL (0.70-1.30); DIRECT BILIRUBIN 0.4 MG/DL (0.0-0.4); GFR AFRICAN AMERICAN 42 ML/MIN (>=60); GFR NON AFRICAN AMERICAN 36 ML/MIN (>=60); GLUCOSE, SERUM 122 MG/DL (60-99); POTASSIUM, SERUM 4.1 MMOL/L (3.5-5.3); SGOT(AST) 27 U/L (5-40); SGPT(ALT) 16 U/L (5-65); SODIUM, SERUM 143 MMOL/L (135-148); TOTAL PROTEIN 6.7 G/DL (6.0-8.5)
[2016-11-14 05:02] LABS: ALKALINE PHOSPHATASE 70 U/L (45-117); BUN (BLOOD UREA NITROGEN) 37 MG/DL (6-23); INDIRECT BILIRUBIN(NOT ORDER) 0.9 MG/DL (0.1-0.9); TOTAL BILIRUBIN 1.3 MG/DL (0-1.2)
[2016-11-14 17:11] LABS: HEMOGLOBIN 9.4 g/dL (13.6-17.8)
[2016-11-15 04:47] LABS: BASOPHILS 0.5 %; BASOPHILS ABSOLUTE 0.03 10/3/uL (0.0-0.16); EOSINOPHILS 2.5 %; EOSINOPHILS ABSOLUTE 0.16 10/3/uL (0.0-0.53); HEMATOCRIT 29.1 % (40.0-51.0); HEMOGLOBIN 9.4 g/dL (13.6-17.8); IMMATURE GRANULOCYTES 0.3 %; IMMATURE GRANULOCYTES ABSOLUTE 0.02 10/3/uL (0.0-0.11); LYMPHOCYTES 12.3 %; LYMPHOCYTES ABSOLUTE 0.78 10/3/uL (0.67-4.30); MEAN CORPUS HGB CONC 32.3 g/dL (32.0-36.0); MEAN CORPUSCULAR VOLUME 89.8 fL (80-100); MEAN PLATELET VOLUME 9.3 fL (9.2-13.0); MONOCYTES 13.7 %; MONOCYTES ABSOLUTE 0.87 10/3/uL (0.21-1.20); NEUTROPHILS 70.7 %; NEUTROPHILS ABSOLUTE 4.47 10/3/uL (2.02-8.40); PLATELET COUNT 144 10/3/uL (150-400); RBC DISTRIBUTION WIDTH 15.9 % (12.0-16.0); RED CELL COUNT 3.24 10/6/uL (4.7-6.1); WHITE BLOOD CELLS 6.3 10/3/uL (4.5-10.5)
[2016-11-15 04:48] LABS: MANUAL DIFF NO %
[2016-11-15 05:06] LABS: CHLORIDE, SERUM 112 MMOL/L (96-112); CO2 (CARBON DIOXIDE) 21 MMOL/L (24-34); CREATININE 1.47 MG/DL (0.70-1.30); GFR AFRICAN AMERICAN 51 ML/MIN (>=60); GFR NON AFRICAN AMERICAN 44 ML/MIN (>=60); GLUCOSE, SERUM 121 MG/DL (60-99); POTASSIUM, SERUM 4.2 MMOL/L (3.5-5.3); SODIUM, SERUM 144 MMOL/L (135-148)
[2016-11-15 05:07] LABS: BUN (BLOOD UREA NITROGEN) 29 MG/DL (6-23)
[2016-11-16 08:15] LABS: BASOPHILS 0.6 %; BASOPHILS ABSOLUTE 0.03 10/3/uL (0.0-0.16); EOSINOPHILS 3.4 %; EOSINOPHILS ABSOLUTE 0.18 10/3/uL (0.0-0.53); HEMATOCRIT 30.8 % (40.0-51.0); HEMOGLOBIN 10.1 g/dL (13.6-17.8); IMMATURE GRANULOCYTES ABSOLUTE 0.05 10/3/uL (0.0-0.11); LYMPHOCYTES ABSOLUTE 0.79 10/3/uL (0.67-4.30); MEAN CORPUS HGB CONC 32.8 g/dL (32.0-36.0); MEAN CORPUSCULAR HEMOGLOB 29.4 pg (26.0-34.0); MEAN CORPUSCULAR VOLUME 89.8 fL (80-100); MEAN PLATELET VOLUME 9.1 fL (9.2-13.0); MONOCYTES 13.5 %; MONOCYTES ABSOLUTE 0.71 10/3/uL (0.21-1.20); NEUTROPHILS 66.5 %; PLATELET COUNT 158 10/3/uL (150-400); RBC DISTRIBUTION WIDTH 15.7 % (12.0-16.0); RED CELL COUNT 3.43 10/6/uL (4.7-6.1); WHITE BLOOD CELLS 5.3 10/3/uL (4.5-10.5)
[2016-11-16 08:16] LABS: MANUAL DIFF NO %
[2016-11-16 08:17] LABS: INTERNATIONAL NORMAL RATI 1.6 UNITS (-); PROTIME (NOT ORD) 18.5 SEC (12.0-14.5)
[2016-11-16 08:25] LABS: ALBUMIN 2.9 G/DL (3.5-5.0); BUN (BLOOD UREA NITROGEN) 22 MG/DL (6-23); CHLORIDE, SERUM 111 MMOL/L (96-112); CO2 (CARBON DIOXIDE) 23 MMOL/L (24-34); CREATININE 1.34 MG/DL (0.70-1.30); GFR AFRICAN AMERICAN 57 ML/MIN (>=60); GFR NON AFRICAN AMERICAN 49 ML/MIN (>=60); GLUCOSE, SERUM 120 MG/DL (60-99); POTASSIUM, SERUM 4.1 MMOL/L (3.5-5.3); SODIUM, SERUM 143 MMOL/L (135-148); TOTAL PROTEIN 6.3 G/DL (6.0-8.5)
[2016-11-16] MEDS ORDERED: COUMADIN4 MG (16:44)
[2017-03-04] MEDS ORDERED: ELIQUIS 2.5 MG2.5 MG PO (09:00)
[2017-03-04] MEDS ORDERED: CYANO1000T PO (09:02)
[2017-03-04] MEDS ORDERED: VITAMIN D31000 UNIT PO (09:02)
== END 2016-11-16 18:42 | disposition home or self-care (01) | DRG 378 ==
LOC: ER 16:45 → 7NO 20:12
PROVIDERS: Emergency Medicine; Internal Medicine; Internal Medicine Gastroenterology; Nurse Practitioner Gerontology
PROC: 30233N1 Transfusion of Nonautologous Red Blood Cells into Peripheral Vein, Percutaneous Approach (ICD-10-PCS; 2016-11-12)
PROC: 0DJ08ZZ Inspection of Upper Intestinal Tract, Via Natural or Artificial Opening Endoscopic (ICD-10-PCS; 2016-11-13)
PROC: 30233K1 Transfusion of Nonautologous Frozen Plasma into Peripheral Vein, Percutaneous Approach (ICD-10-PCS; 2016-11-13)
PROC: 0W3P8ZZ Control Bleeding in Gastrointestinal Tract, Via Natural or Artificial Opening Endoscopic (ICD-10-PCS; principal; 2016-11-14 07:15)
PROC: 0W9G3ZZ Drainage of Peritoneal Cavity, Percutaneous Approach (ICD-10-PCS; 2016-11-16)
DX: K55.21 Angiodysplasia of colon with hemorrhage (principal); D62 Acute posthemorrhagic anemia; N17.9 Acute kidney failure, unspecified; R18.8 Other ascites; I27.2 Other secondary pulmonary hypertension; I13.0 Hypertensive heart and chronic kidney disease with heart failure and stage 1 through stage 4 chronic kidney disease, or unspecified chronic kidney disease; I50.22 Chronic systolic (congestive) heart failure; N18.3 Chronic kidney disease, stage 3 (moderate); K74.60 Unspecified cirrhosis of liver; I25.5 Ischemic cardiomyopathy; K57.30 Diverticulosis of large intestine without perforation or abscess without bleeding; I48.2 Chronic atrial fibrillation; I25.10 Atherosclerotic heart disease of native coronary artery without angina pectoris; G47.33 Obstructive sleep apnea (adult) (pediatric); E78.5 Hyperlipidemia, unspecified; E03.9 Hypothyroidism, unspecified; Z79.01 Long term (current) use of anticoagulants; Z86.73 Personal history of transient ischemic attack (TIA), and cerebral infarction without residual deficits; Z80.0 Family history of malignant neoplasm of digestive organs; Z88.1 Allergy status to other antibiotic agents; Z88.0 Allergy status to penicillin; Z95.5 Presence of coronary angioplasty implant and graft; Z87.891 Personal history of nicotine dependence
CPT/HCPCS: 36415; 36430; 49083; 80048; 80053; 80076; 82040; 83735; 84100; 84155; 84443; 85014; 85018; 85025; 85610; 85730; 86850; 86900; 86901; 86920; 93005; 99285; A9270-GY; C9113; J3430; P9016; P9059